=== PATIENT | female | born 1960 | race Asian ===

== ENCOUNTER 2022-05-13 10:29 | Emergency (ER) | payer BC ==
[2022-05-13 11:18] VITALS: TEMP 97.6; BMI 24.2
[2022-05-13 11:56] LABS: BASO % 1.3 % (0-2.0); EOS % 1.8 % (0-4.5); HEMOGLOBIN 13.9 GM/dL (10.7-15.3); LYMPH % 20.4 % (8-40); MCH 29.2 pg (25.7-33.7); MCHC 33.8 g/dl (32.0-36.0); MEAN CELL VOLUME 86.2 fl (80-96); MEAN PLT VOLUME 6.7 fl (7.5-11.1); MONO % 11.6 % (3.8-10.2); NEUT % 64.9 % (42.8-82.8); PLATELET COUNT 379 10^3/uL (134-434); RBC 4.76 M/mm3 (3.60-5.2); RDW 12.8 % (11.6-15.6); WHITE BLOOD COUNT 8.1 K/mm3 (4.0-10.0)
[2022-05-13 12:14] LABS: INR 0.89 (0.83-1.09); PROTHROMBIN TIME (PATIENT) 10.2 SEC (9.7-13.0)
[2022-05-13 12:29] LABS: CALCIUM 9.1 mg/dL (8.5-10.1)
[2022-05-13 12:30] LABS: ALBUMIN 3.8 g/dl (3.4-5.0); BLOOD UREA NITROGEN 9.8 mg/dL (7-18)
[2022-05-13 12:32] LABS: CREATININE 0.6 mg/dL (0.55-1.3)
[2022-05-13 12:34] LABS: TOT PROT 7.2 g/dl (6.4-8.2)
[2022-05-13 12:35] LABS: BILIRUBIN,TOTAL 0.3 mg/dL (0.2-1)
[2022-05-13 13:29] VITALS: BP 143/89; PULSE 93; RESP 18
== END 2022-05-13 13:47 | disposition home or self-care (01) ==
LOC: JER 10:29
DX: R06.09 Other forms of dyspnea (principal); U09.9 Post COVID-19 condition, unspecified
CPT/HCPCS: 0241U-QW; 36415; 71046-TC-FY; 80053; 83690; 84443; 84484; 85025; 85379; 85610; 93005; 93010; 99284-25

== ENCOUNTER 2023-01-17 04:26 | Day surgery (SDC) | payer BC ==
[2023-01-16 10:00] VITALS: BMI 24.0
[2023-01-17 11:10] VITALS: BP 117/68; PULSE 74; RESP 14; TEMP 98.7
== END 2023-01-17 11:46 | disposition home or self-care (01) ==
LOC: JASU-ENDO 04:26
PROVIDERS: ATTEND Internal Medicine Gastroenterology
PROC: 0DBL8ZX Excision of Transverse Colon, Via Natural or Artificial Opening Endoscopic, Diagnostic (ICD-10-PCS; principal; 2023-01-17 09:45)
DX: Z12.11 Encounter for screening for malignant neoplasm of colon (principal); D12.3 Benign neoplasm of transverse colon; K57.30 Diverticulosis of large intestine without perforation or abscess without bleeding; K64.8 Other hemorrhoids
CPT/HCPCS: 88305-TC